=== PATIENT | female | born 1980 ===

== ENCOUNTER 2019-10-15 20:27 | Emergency (ER) | payer OTHER | END 2019-10-16 01:48 | disposition home or self-care (01) | LOC: ED 20:27 | DX: F41.9 Anxiety disorder, unspecified (principal) | CPT/HCPCS: 99283 ==

== ENCOUNTER 2019-10-16 07:09 | Emergency (ER) | payer OTHER ==
[~2019-10-16] VITALS: Ht 165.1 cm; Wt 68.0 kg
--- OUTSIDE RECORDS SUMMARY | 2019-10-16 07:12 | XMS ---
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 E.Trisha VISIT COUNT (12 MO.) 1 [facility] 4 [facility] and [address] 2 Silvia Meléndez 1 [place] Meléndez 1 [facility] 1 [facility] TOTAL 40 NOTE: Visits indicate total known visits. ED/UCC VISIT TRACKING (12 MO.) 10/16/2019 07:10 [facility] [place] TYPE: Emergency COMPLAINT: - FEELS LIKE SHES GOING TO 10/15/2019 20:28 [facility] [place] TYPE: Emergency COMPLAINT: - [facility]ET[facility] DIAGNOSES: - Headache (Adult - Recurrent Or Known Dx Migraines) - Headache - Anxiety 10[facility]07[facility]2019 23[facility] DIAGNOSES: - Leg Swelling - Headache (Adult - New Onset Or New Symptoms) - Other specified anxiety disorders - Nausea - Headache 09/29/2019 02:47 [facility] TYPE: Emergency DIAGNOSES: 38512. mult complaints 09/24/2019 02:52 [facility] TYPE: Emergency DIAGNOSES: 87839. anxiety 52559. Luis 03970. Anxiety disorder, unspecified 09/14/2019 14:32 [facility] TYPE: Emergency DIAGNOSES: 75273. panic attack 09/01/2019 01:36 [facility] TYPE: Emergency DIAGNOSES: 86273. Headache 37341. Headache 08/30/2019 04:48 [facility] TYPE: Emergency DIAGNOSES: 66713. Sleep Deprived 35811. Anxiety disorder, unspecified 73278. Headache 07/13/2019 19:21 [facility] TYPE: Emergency DIAGNOSES: 01942. Head pain, slurred speech 19654. Headache 07/12/2019 15:32 [facility] TYPE: Emergency DIAGNOSES: - Headache (Adult - New Onset Or New Symptoms) - Diplopia - Proc/trtmt not crd out d/t pt lv bef seen by [facility] care prov 06/25/2019 17:40 [facility] TYPE: Emergency DIAGNOSES: 11702. vision problem 01250. headache, vision changes 01004. Other mixed anxiety disorders 06/24/2019 17:13 [facility] TYPE: Emergency DIAGNOSES: 59129. panic attack, heart palpitations 02791. Panic disorder [episodic paroxysmal anxiety] 12152. Anxiety disorder due to known physiological condition 56413. Palpitations 06/23/2019 03:35 [facility] TYPE: Emergency DIAGNOSES: 16973. Anxiety, Back Pain, Head Pain 19826. Anxiety disorder, unspecified 48393. Panic disorder [episodic paroxysmal anxiety] 06/20/2019 23:30 [facility] [place] TYPE: Emergency DIAGNOSES: - Headache - Panic Attack - anxiety 06/12/2019 16:38 [facility] [place] TYPE: Emergency DIAGNOSES: - Headache (Adult - Re-evaluation) - Anxiety - Tension-type headache, unspecified, not intractable - AMB 06/05/2019 16:57 [facility] [place] TYPE: Emergency DIAGNOSES: - Anxiety - Anxiety disorder, unspecified 06/04/2019 15:30 [facility] [place] TYPE: Emergency DIAGNOSES: - Anxiety - Anxiety disorder, unspecified - Headache 06/02/2019 22:59 [place] [facility] TYPE: Emergency DIAGNOSES: - Headache (Adult - New Onset Or New Symptoms) - Unspecified visual disturbance - Vision Changes 05/31/2019 09:[address] [place] [address] [facility] TYPE: Emergency DIAGNOSES: - Headache (Adult - New Onset Or New Symptoms) - Panic disorder [episodic paroxysmal anxiety] - Tension-type headache, unspecified, not intractable Plus 21 More Visits INPATIENT VISIT TRACKING (12 MO.) No inpatient visits to display in this time frame [email or web address]
== END 2019-10-16 08:31 | disposition home or self-care (01) ==
LOC: ED 07:09
DX: F41.9 Anxiety disorder, unspecified (principal)
CPT/HCPCS: 99283

== ENCOUNTER 2019-10-16 10:54 | Emergency (ER) | payer OTHER ==
[~2019-10-16] VITALS: Ht 165.1 cm; Wt 68.0 kg
== END 2019-10-16 13:05 | disposition home or self-care (01) ==
LOC: ED 10:54
DX: F41.9 Anxiety disorder, unspecified (principal); Z88.2 Allergy status to sulfonamides; Z88.1 Allergy status to other antibiotic agents
CPT/HCPCS: 36415; 80053; 80176; 84443; 84703; 85025; 99283; G0480